=== PATIENT | male | born 1970 | race Caucasian/White ===

== ENCOUNTER 2018-01-30 09:33 | Emergency (ER) | payer BC ==
--- NOTE | 2018-01-30 10:13 | UC ---
Dizzy HPI HPI Summary: Tilted head back last night and the room started spinning. Now only spinning with head moving up and down. - History Of Current Complaint Chief Complaint: UCDizziness Stated Complaint: DIZZINESS Time Seen by Provider: 01/30/18 09:49 Hx Obtained From: Patient Onset/Duration: Sudden Onset, Lasting Days - 1, Still Present Timing: Intermittent Episode Lasting - lasting about 1 minutes Severity Initially: Moderate Severity Currently: None Pain Intensity: 0 Character: Head Spinning Aggravating Factor(s): Change In Head Position Alleviating Factor(s): Nothing Associated Signs And Symptoms: Positive: Nausea - just with the vertigo.. Negative: Tinnitus, Chest Pain, SOB, Palpitations, Unsteady Gait, Visual Changes - Risk Factors Cardiac Risk Factors: Negative CVA Risk Factor: Negative - Allergies/Home Medications Allergies/Adverse Reactions: Allergies Allergy/AdvReac Type Severity Reaction Status Date / Time Penicillins Allergy Unknown Verified 01/30/18 09:42 Reaction Details Sulfa (Sulfonamide Allergy Unknown Verified 01/30/18 09:42 Antibiotics) Reaction Details PMH/Surg Hx/FS Hx/Imm Hx Previously Healthy: Yes - Surgical History Surgical History: None - Family History Known Family History: Positive: Cardiac Disease, Hypertension - Social History Occupation: Employed Full-time Lives: With Family Alcohol Use: Rare Substance Use Type: None Smoking Status (MU): Never Smoked Tobacco Review of Systems Is Patient Immunocompromised?: No All Other Systems Reviewed And Are Negative: Yes Physical Exam Triage Information Reviewed: Yes Appearance: Well-Appearing, Well-Nourished, Obese Vital Signs: Initial Vital Signs Temp 98.2 F 01/30/18 09:34 Pulse 102 01/30/18 09:34 Resp 20 01/30/18 09:34 BP 158/102 01/30/18 09:34 Pulse Ox 100 01/30/18 09:34 Vital Signs Reviewed: Yes Eyes: Positive: Conjunctiva Clear ENT: Positive: Pharynx normal, Nasal congestion, TMs normal Neck exam: Normal Respiratory Exam: Normal Cardiovascular Exam: Normal Musculoskeletal Exam: Normal Neurological Exam: Normal Psychological Exam: Normal Skin Exam: Normal Dizzy Course/Dx - Differential Dx/Diagnosis Differential Diagnosis/HQI/PQRI: Benign Paroxysmal Positional Vertigo, Labyrinthitis, Meniere's Disease Provider Diagnoses: Benign Positional Vertigo Discharge - Sign-Out/Discharge Documenting (check all that apply): Discharge - Discharge Plan Condition: Stable Disposition: HOME Prescriptions: Meclizine HCl [Motion Sickness II] 25 mg PO Q6HR PRN #60 tablet PRN Reason: Vertigo Patient Education Materials: Benign Paroxysmal Positional Vertigo (ED), Meclizine (By mouth) Referrals: Santino Granado MD [Medical Doctor] - - Billing Disposition and Condition Condition: STABLE Disposition: HOME
[2018-01-30] MEDS ORDERED: Meclizine TAB* 12.5 MG PO ONE (10:30)
== END 2018-01-30 10:43 | disposition home or self-care (01) ==
LOC: UCCORT 09:33
DX: H81.10 Benign paroxysmal vertigo, unspecified ear (principal); Z88.0 Allergy status to penicillin; Z88.2 Allergy status to sulfonamides
CPT/HCPCS: 99202; A9270-GY; G0463